=== PATIENT | female | born 1955 | race Caucasian/White ===

== ENCOUNTER 2021-05-28 13:01 | Day surgery (SDC) | payer BC, MEDICAID ==
[~2021-05-28 13:01] MED LIST: Cefuroxime 10 MG/ML SYRINGE EYERT SCH; Lidocaine 1% PF 2 ML SDV INJECT SCH; Pilocarpine 4% Ophth Soln 15 ML Bot EYERT SCH
[2021-05-28] MEDS: Polymyxin B/Trimethoprim 10 ML Bottle EYERT SCH ×3 (13:41→15:24)
[2021-05-28] MEDS: Brimonidine 0.2% Ophth Soln 5 ML Bottle EYERT SCH ×3 (13:46→15:24)
[2021-05-28] MEDS: Phenylephrine 2.5% Ophth Soln 2 ML Bot EYERT SCH ×5 (13:51→15:04)
[2021-05-28] MEDS: Tropicamide 1% Ophth Soln 15 ML Bottle EYERT SCH ×4 (13:55→14:44)
[2021-05-28] MEDS: Tetracaine HCl/PF 0.5% 4 ML Bottle EYEBOTH SCH ×4 (14:56→15:11)
== END 2021-05-28 15:42 | disposition home or self-care (01) ==
LOC: JD.SDS 13:01
PROVIDERS: ATTEND Ophthalmology
DX: E11.36 Type 2 diabetes mellitus with diabetic cataract (principal); H25.813 Combined forms of age-related cataract, bilateral; H40.1112 Primary open-angle glaucoma, right eye, moderate stage; H40.1122 Primary open-angle glaucoma, left eye, moderate stage; H43.813 Vitreous degeneration, bilateral; E11.39 Type 2 diabetes mellitus with other diabetic ophthalmic complication; E78.00 Pure hypercholesterolemia, unspecified; I10 Essential (primary) hypertension; E07.9 Disorder of thyroid, unspecified; Z98.890 Other specified postprocedural states; Z79.899 Other long term (current) drug therapy; Z79.890 Hormone replacement therapy
CPT/HCPCS: 66984; J0697; C1780

== ENCOUNTER 2021-06-25 08:03 | Day surgery (SDC) | payer BC ==
[2021-06-25] MEDS: Polymyxin B/Trimethoprim 10 ML Bottle EYELF SCH ×3 (07:57→09:48)
[2021-06-25] MEDS: Brimonidine 0.2% Ophth Soln 5 ML Bottle EYELF SCH ×3 (08:02→09:48)
[~2021-06-25 08:03] MED LIST changes: +Cefuroxime 10 MG/ML SYRINGE EYELF SCH; -Cefuroxime 10 MG/ML SYRINGE EYERT SCH; +Pilocarpine 4% Ophth Soln 15 ML Bot EYELF SCH; -Pilocarpine 4% Ophth Soln 15 ML Bot EYERT SCH
[2021-06-25] MEDS: Phenylephrine 2.5% Ophth Soln 2 ML Bot EYELF SCH ×5 (08:06→09:25)
[2021-06-25] MEDS: Tropicamide 1% Ophth Soln 15 ML Bottle EYELF SCH ×5 (08:10→09:03)
[2021-06-25] MEDS: Tetracaine HCl/PF 0.5% 4 ML Bottle EYEBOTH SCH ×4 (09:13→09:34)
== END 2021-06-25 09:59 | disposition home or self-care (01) ==
LOC: JD.SDS 08:03
PROVIDERS: ATTEND Ophthalmology
DX: E11.36 Type 2 diabetes mellitus with diabetic cataract (principal); H25.812 Combined forms of age-related cataract, left eye; H52.31 Anisometropia; H40.1132 Primary open-angle glaucoma, bilateral, moderate stage; H02.831 Dermatochalasis of right upper eyelid; H35.373 Puckering of macula, bilateral; H02.834 Dermatochalasis of left upper eyelid; E78.00 Pure hypercholesterolemia, unspecified; I10 Essential (primary) hypertension; Z96.1 Presence of intraocular lens; Z98.890 Other specified postprocedural states; H91.90 Unspecified hearing loss, unspecified ear; Z91.048 Other nonmedicinal substance allergy status; Z79.890 Hormone replacement therapy; Z79.899 Other long term (current) drug therapy
CPT/HCPCS: 66984; J0697; C1780